=== PATIENT | male | born 1930 | race Caucasian/White ===

== ENCOUNTER 2016-03-15 10:36 | Emergency (ER) | payer MEDICARE, MEDICAID ==
[~2016-03-15 10:36] MED LIST: ACET325T51 PO; ALLO300T2 PO; AMLO5TAB2 PO; CHOL10008 PO; DULCOLAX RECTAL; FURO40TA4 PO; GLPZ5T PO; GLYCERIN RECTAL; GUAI-844 PO; HYDR-3825 PO; HYDR-4003 PO; LEVO25TA5 PO; MAGN400O4 PO; METF1000 PO; NA P133E23 RC; NA S5DRO OP; NITR0.4T SL; ONDA4TAB6 PO; POTA20TA16 PO; RANI150T11 PO; ROSU5TAB PO; WARF10TA4 PO; WARF6TAB6 PO
[2016-03-15 10:47] VITALS: BP 132/59; PULSE 95; RESP 23; O2SAT 92
--- NOTE | 2016-03-15 11:12 | ED.REPORT ---
HPI-Trauma Minor / Fall Date of Service Mar 15, 2016 ED Provider: Suraj Olson MD An 86 year old male with an extensive medical history including atrial fibrillation on warfarin presents to the ED via EMS from his [facility] after being found unresponsive just prior to arrival. EMS reports the patient had a fall from bed last night and hit his head. He is DNR with limited intervention but his family requests an evaluation. Nursing Notes Stated Complaint: DECREASED LOC Chief Complaint: Head, Face, Neck Trauma Nursing Notes Reviewed: Yes Allergies: Coded Allergies: atorvastatin (Verified Allergy, Unknown, 03/15/16) calcium (Verified Allergy, Unknown, 03/15/16) lovastatin (Verified Allergy, Unknown, 03/15/16) Scheduled Allopurinol (Allopurinol) 300 Mg Tablet 300 MG PO DAILY Amlodipine (Amlodipine) 5 Mg Tablet 5 MG PO DAILY Cholecalciferol (Vitamin D3) (Vitamin D3) 1,000 Unit Tab.chew 1,000 UNIT PO DAILY Furosemide (Furosemide) 40 Mg Tablet 40 MG PO DAILY Glipizide (Glipizide) 5 Mg Tablet 5 MG PO BIDAC Levothyroxine (Levothyroxine) 25 Mcg Tablet 25 MCG PO DAILY Metformin (Glucophage) 1,000 Mg Tablet 1,000 MG PO BIDWM Potassium Chloride (Potassium Chloride) 20 Meq Tab.er.prt 20 MEQ PO DAILY TAKE WITH FOOD Ranitidine (Zantac) 150 Mg Tablet 150 MG PO BID Rosuvastatin Calcium (Crestor) 5 Mg Tablet 5 MG PO DAILY Sulfacetm Na/Prednisol AC (Blephamide Eye Drops) 5 Ml Drops.susp 1 GTT OP BOTH EYES DAILY Warfarin Sodium (Warfarin Sodium) 6 Mg Tablet 12 MG PO SUN,SUN,SUN Warfarin Sodium (Warfarin Sodium) 10 Mg Tablet 10 MG PO SUN,,SUN,SUN Scheduled PRN ([glycerin/dulcolax]) 10 MG RECTAL DIRECTED PRN PRN For Constipation Acetaminophen (Acetaminophen) 325 Mg Tablet 325-650 MG PO Q4H PRN PRN For Fever Guaifenesin/Dextromethorphan (Linsey-Tussin Dm Syrup) 100 Mg-10 Mg/5 Ml Syrup 10 ML PO Q4H PRN PRN For Cough Hydrocodone-Acetaminophen 5-325 mg (Hydrocodone-Acetaminophen 5-325 mg) 1 Each Tablet 1 TABLET PO BID PRN PRN For Pain Hydrocodone-Acetaminophen 7.5-325 mg (Hydrocodone-Acetaminophen 7.5-325 mg) 1 Each Tablet 1 TAB PO Q6H PRN PRN For Severe Pain Magnesium Hydroxide (Milk of Magnesia) 400 Mg/5 Ml Oral.susp 30 CC PO DIRECTED PRN PRN For Constipation Morphine Sulfate Oral Soln (Morphine Sulfate Oral Soln) 20 Mg/5 Ml Solution 4-8 MG PO Q2H PRN PRN For Pain Na Phos,M-B/Na Phos,Di-Ba (Fleet Enema) 133 Ml Enema 133 ML RC DIRECTED PRN PRN For Constipation Nitroglycerin SL (Nitrostat) 0.4 Mg Tab.subl 0.4 MG SL Q5MIN PRN PRN For Chest Pain May repeat every 5 minutes until relief. If pain persists after 3 tablets in 15 minutes call 911. Ondansetron (Zofran) 4 Mg Tablet 4 MG PO Q4H PRN PRN For Nausea General Time Seen by MD: 11:09 Transferred From: alf ([facility] Chief Complaint Other (Unresponsive) Hx Obtained From: EMS Unable to Obtain Hx: Patient condition, Mental status Arrived By: Ambulance Onset Occurred: Just prior to arrival Symptom Duration: Since onset Caused by: Fall on ground Context: Occurred at: Home injury Pertinent Negative: Relieved by nothing Context: Immunizations Unknown Recent Healthcare: No recent doctor visit Similar Sx Previous: No Risk Factors Sujit Coma Score > Age 5 Eye Opening: No response (1) Verbal Response: No response (1) Motor Response: No response (1) Sujit Coma Score: 3 Past Medical History Past Medical History Notes: Past Medical History 1. B-cell non-Hodgkin lymphoma undergoing chemotherapy under the care of Dr. Dove 2. Type 2 vim-ggmoine-fistwbcrr diabetes mellitus. 3. Aspiration pneumonia. 4. Hypertension. 5. Gout. 6. Hypothyroidism. 7. Dyslipidemia. 8. BPH. 9. Sustained Atrial fibrillation 10. Macular degeneration of left eye 11. Chronic back pain with Spinal stenosis, not a surgical candidate on conservative management 12. Frequent falls 13. Cholecystitis status post cholecystectomy Past Surgical History Port-A-Cath for chemotherapy Cholecystectomy November 2014 Family History Mother at 98, old age. Father 90 of old age. Smoking History Never Smoker Social History Alcohol Use: "Social" Other Social History: Good social support, Lives alone, Lives in [facility] Ambulatory Status Cane Review of Systems Unable to Obtain ROS Patient condition, Mental status Physical Exam Initial Vital Signs Vital Signs (First) Date Time Temp Pulse Resp B/P Pulse Ox O2 Delivery O2 Flow Rate FiO2 03/15/16 10:47 38.3 95 23 132/59 92 Room Air Initial VS: Reviewed ENT: Conjunctiva normal, No scleral icterus Skin: Warm, Dry Alertness: Positive: Unresponsive Unresponsive to deep, painful stimulus Head / Eyes: Normocephalic Trauma - General: Positive: Hematoma (subacute, old, to left face from below eye to jaw) Respiratory / Chest: Breath sounds = bilat, No respiratory distress Cardiovascular: Heart rate NL (102), Regular rhythm, Heart sounds NL Abdomen: Soft, No palpable mass Lower Extremity / Pelvis / MS: Inspection NL, No edema Mental Status: Positive: Unresponsive GCS 3 Interpretation & Diagnostics CT Head Interpretation IMPRESSION: Large right hemispheric brain parenchymal hemorrhage with penetration into the ventricles and subarachnoid space to a small degree, with this hemorrhage producing mass effect shifting the midline structures beneath the falx leftward by approximately 2.2 cm. Early ischemic injury to the right cerebrum is present, early obstructive hydrocephalus is present on the left within the left lateral ventricle, and there is asymmetric right greater than left uncal herniation effacing the right suprasellar cistern. This information was immediately discussed with the emergency room physician caring for the patient at this time. Dictated by: Prudencio Ko M.D. on 03/15/2016 at 11:26 Study: Head CT no contrast Interpretation / Wet Read by: Interpret - Radiologist Re-Eval/Medical Decision Source of Hx: Old records Re-Evaluation/Progress : Time of Eval: 12:54 Patient Status: Condition unchanged Re-Evaluation/Progress Note: Discussed patient's case with his nephew and POA. Discussed CT results, diagnosis, and plan for discharge to [facility]. Patient's nephew agrees with plan for care and all questions were addressed. Discussed patient's code status with his nephew. He request the code status be reduced to Comfort Measures Only. Consultation : Call Returned at: 13:13 Relationship Counselor: Agrees with eval, Agrees with plan Note: BHUMIKA JULES [facility]: Discussed patient's case. They agree with plan for discharge to their facility with comfort measures only. Counseled Regarding: Diagnosis, Need for follow-up, When/why to return to ED Discharge & Departure Impression: Primary Impression: Intracranial hemorrhage Disposition: Home Discharge Condition All VS Reviewed: Yes Condition: Stable Additional Instructions: Massive intracranial hemorrhage is present. This is a life ending event. I expect Deng to pass away in the coming hours or days. Use concentrated liquid morphine sublingually as needed if he appears to be in pain or discomfort. Referrals: Rosalina Ward MD (PCP) Scribe Attestation Portions of this note were transcribed by Anjua Garcia. I, Dr. Olson, personally performed the history, physical exam, and medical decision-making; I reviewed and confirmed the accuracy of the information in the transcribed note. Signed by: Rehan Brewster, 03/15/2016, 14:44 copies to: Rosalina Ward MD, Kirk H MD Mar 15, 2016 11:12 ANUJA GARCIA Mar 15, 2016 11:51
--- NOTE | 2016-03-15 11:33 | DRSVH ---
PROCEDURE: CT BRAIN WITHOUT CONTRAST ([id number]) INDICATIONS: dec LOC, fall TECHNIQUE: Noncontrast 4.5 mm thick angled axial sections acquired from the foramen magnum to the vertex, with c oronal reformats. COMPARISON: [facility], CT, CT BRAIN WO CON, 11/10/2014, 15:13. FINDINGS: Image quality: Excellent. CSF spaces: Basal cisterns are effaced by mass effect, right greater than left. No extra-axial flui d collections. Ventricles are prominently distorted in size and shape by a large hemorrhage with epi center in the right posterior temporal region, with this hemorrhaging measuring up to 5.8 x 6.9 cm in maximal transverse and AP dimensions. Brain: There is a 2.2 cm dcbjq-kf-hing subfalcine midline shift associated with a large hemorrhage no ganesh above on the right on the and this hemorrhage appears to have penetrated to a small degree into t he ventricles, with posterior layering of a small amount of blood products on the left in the occipit al horn of the lateral ventricle. The left lateral ventricle also appears somewhat dilated, in a pat tern suggestive of early obstructive hydrocephalus due to the [id number] mass effect. There is is chemic injury involving the right cerebrum with loss of moreno-white differentiation in areas, and a sm all amount of hemorrhage likely has penetrated into the subarachnoid space at the anterior border of the right temporal lobe. Skull and face: Calvarium and visualized facial bones are intact, without suspicious lesions. Sinuses: Visualized sinuses and mastoids are clear. IMPRESSION: Large right hemispheric brain parenchymal hemorrhage with penetration into the ventricles and subarachnoid space to a small degree, with this hemorrhage producing mass effect shifting the mi dline structures beneath the falx leftward by approximately 2.2 cm. Early ischemic injury to the rig ht cerebrum is present, early obstructive hydrocephalus is present on the left within the left latera l ventricle, and there is asymmetric right greater than left uncal herniation effacing the right supr asellar cistern. This information was immediately discussed with the emergency room physician caring for the patient at this time. Dictated by: Prudencio Ko M.D. on 03/15/2016 at 11:26 Approved by: Prudencio Ko M.D. on 03/15/2016 at 11:31
[2016-03-15] MEDS ORDERED: MORP20SY PO (13:23)
[2016-03-15 13:26] VITALS: BP 113/56; PULSE 108; RESP 25; O2SAT 93
[2016-03-15] MEDS ORDERED: MORP20SO PO (13:29)
[2016-03-15 13:49] VITALS: BP 113/56; PULSE 108; RESP 25; O2SAT 93
== END 2016-03-15 13:51 | disposition home or self-care (01) ==
LOC: SED 10:36 → EDBD 10:36 → SED 13:51
DX: S06.2X0A Diffuse traumatic brain injury without loss of consciousness, initial encounter (principal); W06.XXXA Fall from bed, initial encounter; Y93.9 Activity, unspecified; Y92.122 Bedroom in nursing home as the place of occurrence of the external cause; Y99.8 Other external cause status; I48.91 Unspecified atrial fibrillation; E11.9 Type 2 diabetes mellitus without complications; I10 Essential (primary) hypertension; E03.9 Hypothyroidism, unspecified; Z66 Do not resuscitate; Z85.72 Personal history of non-Hodgkin lymphomas; Z87.01 Personal history of pneumonia (recurrent); Z79.01 Long term (current) use of anticoagulants; Z91.81 History of falling; Z88.8 Allergy status to other drugs, medicaments and biological substances; Z79.84 Long term (current) use of oral hypoglycemic drugs; Z92.21 Personal history of antineoplastic chemotherapy